=== PATIENT | female | born 1970 | race Two or more races ===

== ENCOUNTER → 2024-09-13 | Outpatient (CLI) | payer MEDICAID, SELFPAY ==
--- NOTE | 2024-09-13 09:30 | XR_ITS ---
Examination: CT abdomen, without intravenous contrast. CT pelvis, without intravenous contrast. CT abdomen, with intravenous contrast. CT pelvis, with intravenous contrast. 2-D sagittal coronal reconstructions. Date and time of exam:September 13, 2024 0951 hours INDICATIONS: 10 mm 6 mm fat-containing posterior left renal masses on CT abdomen April 12, 2024 CTDI: vol (mGy) 11.7 DLP: (mGycm) 543 Technique: Multiple 3.0 axial images of the abdomen and pelvis without intravenous contrast, 3.0 mm slice thickness. Multiple 3.0 postcontrast images abdomen and pelvis also obtained, post intravenous injection 60 cc [id number] 2-D sagittal and coronal reconstructions. Low dose protocols were performed. One or more of the following dose reduction techniques were used; automated exposure control, adjustment of the mA and/or KV according to patient size, use of iterative reconstruction technique. Findings: No focal liver or splenic lesions No gallstones No pancreatic mass Aorta normal size 4 mm 10 mm fat-containing left renal masses which do not enhance Normal appendix No bowel obstruction Urinary bladder intact No pelvic mass Significant degenerative disc disease L3-L4 IMPRESSION: Stable angiomyolipomas left kidney
== END | disposition home or self-care (01) ==
LOC: CCTX 08:59
PROVIDERS: Referring Provider Internal Medicine Gastroenterology; Visit Provider Internal Medicine Gastroenterology
DX: D17.71 Benign lipomatous neoplasm of kidney (principal)
CPT/HCPCS: 74178; A4649; Q9967

== ENCOUNTER → 2024-10-24 | Outpatient (CLI) | payer MEDICAID, SELFPAY ==
--- NOTE | 2024-10-24 16:12 | XR_ITS ---
EXAMINATION: Cervical spine, 5 views Technique: Cervical spine AP, AP odontoid, lateral, bilateral obliques, 5 views Exam date and time: October 24, 2024 1615 hours INDICATIONS: Neck pain radiating down the left arm beginning one week ago. FINDINGS: Moderate degenerative disc disease C5-C6 No cervical fracture Adequate alignment cervical vertebral bodies Moderate bilateral neural foraminal stenosis at the C5-C6 level Intact odontoid IMPRESSION: Moderate degenerative disc disease C5-C6 with moderate bilateral neural foraminal stenosis
== END | disposition home or self-care (01) ==
LOC: CDIM 15:57
PROVIDERS: Referring Provider Family Medicine; Visit Provider Family Medicine
DX: M50.322 Other cervical disc degeneration at C5-C6 level (principal); M48.02 Spinal stenosis, cervical region
CPT/HCPCS: 72050

== ENCOUNTER → 2024-12-01 | Outpatient (CLI) | payer MEDICAID, SELFPAY ==
--- NOTE | 2024-12-01 14:00 | XR_ITS ---
Examination: MRI cervical spine without intravenous contrast Date and time of exam: December 01, 2024 1345 hrs. Indications: Left-sided neck pain radiating down the left arm beginning one month ago Technique: Multiple axial and sagittal sections of the cervical spine to been obtained. T2 weighted sagittal sections, TR 3, 270, TE 117 T1-weighted sagittal sections, TR 500, TE 11 T1-weighted axial sections, TR 607, TE 12, axial sections TR 18, TE 27 and T2 weighted transverse sections, TR 3920, TE 122. Findings: Adequate alignment cervical vertebral bodies No cervical fracture Mild disc narrowing C5-C6 Intact odontoid Diffuse cervical disc desiccation Normal marrow signal cervical vertebral bodies No localized enlargement cervical cord C2-C3 no disc protrusion C3-C4 mild right neural foraminal stenosis C4-C5 advanced left moderate right neural foraminal stenosis C5-C6 advanced bilateral neural foraminal stenosis C6-C7 moderate bilateral neural foraminal stenosis C7-T1 no disc protrusion Impression: C4-C5 advanced left moderate right neural foraminal stenosis C5-C6 advanced bilateral neural foraminal stenosis C6-C7 moderate bilateral neural foraminal stenosis
== END | disposition home or self-care (01) ==
LOC: SMRI 13:17
PROVIDERS: PCP Family Medicine; Referring Provider Family Medicine; Visit Provider Family Medicine
DX: M48.02 Spinal stenosis, cervical region (principal)
CPT/HCPCS: 72141

== ENCOUNTER → 2025-02-08 | Outpatient (CLI) | payer MEDICAID, SELFPAY ==
--- NOTE | 2025-02-08 15:15 | XR_ITS ---
Examination: Screening digital mammography, bilateral Computer aided detection 3-D breast Tomosynthesis, bilateral Date and time of exam: February 08, 2025 1534 hours Compared to mammograms dating to November 18, 2020 Indication: Screening Technique: Nonmagnified MLO, CC views of the breasts to been obtained, reconstructed from 3-D Tomosynthesis images. R2 computer aided detection program utilized for evaluation of suspicious masses and/or abnormal calcifications. 3-D Tomosynthesis images obtained. Findings: The breasts are heterogeneously dense, which may obscure small masses Benign calcifications. Implants are intact. No interval suspicious masses Impression: BI-RADS category II: Benign Findings. Recommend 1 year follow-up mammogram.
== END | disposition home or self-care (01) ==
LOC: CDIM 15:07
PROVIDERS: Referring Provider Family Medicine; Visit Provider Family Medicine
DX: Z12.31 Encounter for screening mammogram for malignant neoplasm of breast (principal); R92.323 Mammographic fibroglandular density, bilateral breasts; R92.1 Mammographic calcification found on diagnostic imaging of breast
CPT/HCPCS: 77063; 77067

== ENCOUNTER → 2025-07-25 | Outpatient (CLI) | payer MEDICAID, SELFPAY ==
--- NOTE | 2025-07-25 15:00 | XR_ITS ---
Examination: Retroperitoneal ultrasound, complete Technique: Multiple high resolution grayscale images of the retroperitoneum obtained, including kidneys and bladder. Exam date and time: July 25, 2025, 1507 hours INDICATIONS: History renal fat-containing lesions on ultrasound abdomen March 12, 2024 FINDINGS: Right kidney 10.4 cm renal cortex 1.7 cm No hydronephrosis Left kidney 10.0 cm renal cortex 1.3 cm Mid pole fat-containing mass 9 x 11 x 9 mm Lower pole fat-containing mass 10 x 12 x 9 mm No hydronephrosis Contracted urinary bladder IMPRESSION: Small fat-containing left renal tumors
== END | disposition home or self-care (01) ==
LOC: CDIM 14:39
PROVIDERS: PCP Family Medicine; Referring Provider Family Medicine; Visit Provider Family Medicine
DX: D17.71 Benign lipomatous neoplasm of kidney (principal)
CPT/HCPCS: 76770